=== PATIENT | female | born 1965 | race Caucasian/White ===

== ENCOUNTER → 2016-06-14 | Outpatient (CLI) | payer BC ==
[~2016-06-14] MED LIST: ASPIRIN325 MG PO
== END | disposition disaster alternative care site (69) ==
LOC: GBCOE 12:56
DX: Z12.31 Encounter for screening mammogram for malignant neoplasm of breast (principal); N85.8 Other specified noninflammatory disorders of uterus
CPT/HCPCS: G0202

== ENCOUNTER → 2016-06-28 | Day surgery (SDC) | payer BC ==
[~2016-06-28] VITALS: Ht 167.6 cm; Wt 93.7 kg
== END | disposition disaster alternative care site (69) ==
LOC: GPOC 06-25 10:00 → GEND 06:48 → GPOC 10:00
PROC: 0DBP8ZZ Excision of Rectum, Via Natural or Artificial Opening Endoscopic (ICD-10-PCS; principal; 2016-06-28)
DX: Z12.11 Encounter for screening for malignant neoplasm of colon (principal); K62.1 Rectal polyp; K31.9 Disease of stomach and duodenum, unspecified; Z86.32 Personal history of gestational diabetes; Z88.0 Allergy status to penicillin; Z79.82 Long term (current) use of aspirin
CPT/HCPCS: J7030